=== PATIENT | female | born 1975 | race Caucasian/White ===

== ENCOUNTER 2018-04-06 14:52 | Emergency (ER) | payer BC, OTHER ==
[2018-04-06] MEDS ORDERED: methylPREDNISolone 125 MG* 2 ML VIAL IM ONE (15:15)
[2018-04-06] MEDS ORDERED: Famotidine TAB* 20 MG PO ONE (15:15)
[2018-04-06] MEDS ORDERED: diPHENhydraMINE IV* 50 MG/ML 1 ml VIAL (BENADRYL) IM ONE (15:16)
[2018-04-06] MEDS ORDERED: Acetaminophen TAB* 325 MG PO ONE (15:17)
[2018-04-06 15:54] VITALS: BP 112/62
--- NOTE | 2018-04-06 15:59 | UC ---
Allergic Reaction HPI - HPI Summary HPI Summary: Patient presents emergency department reporting a bee sting. 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 Patient states approximately 15 minutes prior to arrival she was stung on her right breast from a honey bee that flew into her shirt. Patient states initially said she felt fine. Patient states she does reveal some tingly mom in base of her mouth. Patient states she started to feel little lightheaded. No shortness of breath. No difficulty swallowing. Patient reports mild anxiety. Patient has used appendectomy in the past. Patient did not take any medication today itching have it with her. Patient denies hives. Patient reports a little bit of burning at the site of the sting. Patient without any nausea. Patient without any difficulty breathing or handling secretions. Patient's medications reviewed this visit. - History of Current Complaint Chief Complaint: UCAllergicReaction Stated Complaint: BEE STINGS Time Seen by Provider: 04/06/18 14:56 Hx Obtained From: Patient Hx Last Menstrual Period: 04/06/18 ?: No Onset/Duration: Sudden Onset Severity Initially: Mild Severity Currently: Mild Pain Intensity: 3 Pain Scale Used: 0-10 Numeric Location: Discrete @ - Right breast Aggravating Factor(s): Nothing Alleviating Factor(s): Nothing - Allergies/Home Medications Allergies/Adverse Reactions: Allergies Allergy/AdvReac Type Severity Reaction Status Date / Time WASPS Allergy Anaphylatic Uncoded 04/06/18 15:14 Shock PMH/Surg Hx/FS Hx/Imm Hx Previously Healthy: Yes - Surgical History Surgical History: Yes Surgery Procedure, Year, and Place: RIGHT HIP REPLACEMENT - Family History Known Family History: Positive: Other - Social History Occupation: Employed Part-time Alcohol Use: None Substance Use Type: None Smoking Status (MU): Former Smoker Review of Systems Skin: Other - bee sting Respiratory: Negative Neurological: Other - tingling in throat All Other Systems Reviewed And Are Negative: Yes Physical Exam - Summary Physical Exam Summary: Vital Signs Reviewed: Yes A+Ox3, no distress speaking full, easy sentences Eyes: Conjunctiva Clear, EDA. EOM intact and full ENT: Hearing grossly normal TM x 2 clear, no intra-oral edema, mmoist, uvula midline, no exudate, no erythema, no difficulty with secretions Neck: Positive: Supple Respiratory: Positive: No respiratory distress, No accessory muscle use + CTA throughout no w/r Cardiovascular: RRR nl s1, s2 no m/r CBT <2 sec abd soft + BS nt/nd no guarding, no distension Musculoskeletal Exam: SINGH x 4 without difficulty Strength Intact, ROM Intact Neurological: Positive: Alert, + sensation throughout Psychological: Positive: Normal Response To Family Skin: Positive: no rash, no hives, no ecchymosis Triage Information Reviewed: Yes Vital Signs: Initial Vital Signs Temp 98 F 04/06/18 14:53 Pulse 81 04/06/18 14:53 Resp 18 04/06/18 14:53 BP 138/74 04/06/18 14:53 Pulse Ox 98 04/06/18 14:53 Re-Evaluation - Re-Evaluation First Eval Change: Improved - Patient states she is feeling better. A scratchy. Straight feel little groggy from the Benadryl. I'll signs stable. Second Eval Change: Improved - Patient states she feels fine. Just a little sleepy. Patient's vital signs remained stable. Patient calling for a ride. Discussed with patient medication putting prednisone/Benadryl/Pepcid. Patient given prescription for EpiPen with one refill. Discussed with patient if she uses Epi must go directly to the emergency department. return precautions work note benadryl sedation precaution Allergic Reaction Course/Dx - Course Course Of Treatment: PT prestents reporting throat tingling and lightheadedness following a bee sting on right breast [employer]. this was a honey bee - pt with h/o needing epi with wasp. States this feels different and not as bad. VSS. Will give IM be benadryl, solumedrol. oral pepcid. close monitoring - Differential Dx/Diagnosis Provider Diagnoses: bee sting Discharge - Sign-Out/Discharge Documenting (check all that apply): Patient Departure - Discharge Plan Condition: Stable Disposition: HOME Prescriptions: EPINEPHrine [Epipen 2-Usman] 0.3 mg IJ ONCE #1 auto.injct Famotidine TAB* [Pepcid 20 MG TAB*] 20 mg PO DAILY #12 tab predniSONE TAB* [Deltasone TAB*] 50 mg PO DAILY #4 tab Patient Education Materials: Insect Bite or Sting (ED) Forms: *Work Release Referrals: Power CAMACHO,[place] Can [Medical Doctor] - Additional Instructions: - Take prednisone exactly as prescribed until gone - starting today - Okay to take Benadryl (1-2 tablets) every 6 hours as needed. This medication may cause drowsiness - do NOT drive, operate machinery or drink alcohol while taking Benadryl -Take pepcid as prescribed - 2 times daily for 6 days -Avoid getting over heated (hot showers, hot tubs, exercise) for at least 48 hours - Try to avoid aspirin, NSAIDs (ibuprofen,Motrin, Aleve, Naprosyn) for 2-3 days - Okay to apply cool compresses to the area of injury - you have been given a prescription for an epipen - if you use your pen, you MUST go to the emergency department -Contact your doctor or return here with questions or concerns - Billing Disposition and Condition Condition: STABLE Disposition: Home
== END 2018-04-06 16:08 | disposition home or self-care (01) ==
LOC: UCCORT 14:52
DX: T63.441A Toxic effect of venom of bees, accidental (unintentional), initial encounter (principal); R20.2 Paresthesia of skin; R42 Dizziness and giddiness; Y92.9 Unspecified place or not applicable; Z91.038 Other insect allergy status; Z87.891 Personal history of nicotine dependence
CPT/HCPCS: 96372; 99203; A9270-GY; G0463; J1200; J2930